=== PATIENT | female | born 1980 | race Caucasian/White ===

== ENCOUNTER → 2018-04-04 | Outpatient (CLI) | payer OTHER | LOC: EDSTATUS 09:55 → BMCIMAGING 11:40 | PROVIDERS: ATTEND Emergency Medicine | DX: J40 Bronchitis, not specified as acute or chronic (principal) ==

== ENCOUNTER 2018-04-13 20:26 | Emergency (ER) | payer OTHER ==
[2018-04-13] MEDS ORDERED: IPRATROPIUM/ALBUTEROL 3 ML DEYVIAL IH ONE (20:47)
--- NOTE | 2018-04-13 21:16 | EDPHY ---
H & P Stated Complaint: cough, SOB Time Seen by Provider: 04/13/18 20:45 HPI/ROS: CHIEF COMPLAINT: Shortness of breath HISTORY OF PRESENT ILLNESS: The patient is a 38-year-old female who comes to the emergency department complaining of cough and shortness of breath sensation as well as upper chest pressure for the last week and half. She initially presented to an urgent care and was treated with albuterol, cough syrup and azithromycin. She took the course of antibiotics but did not feel any better. [facility] and they had her continue the albuterol and added prednisone tablets and QVAR inhaler. She states that she has been using these and still not feeling better. She has had a low-grade fever up to 99 degrees. She has been traveling extensively this summer to [place]. She does not take control pills. She does not smoke. She denies any history of asthma or COPD of cardiac disease. She states that she had an albuterol inhaler earlier today and felt much better afterwards. Severity: Moderate Modifying factors: None REVIEW OF SYSTEMS: Constitutional: See HPI EENTM: denies: blurred vision, double vision, nose congestion Respiratory: See HPI Cardiac: denies: chest pain, irregular heart rate, lightheadedness, palpitations Gastrointestinal/Abdominal: denies: abdominal pain, diarrhea, nausea, vomiting, blood streaked stools Genitourinary: denies: dysuria, frequency, hematuria, pain Musculoskeletal: denies: joint pain, muscle pain Skin: denies: lesions, rash, jaundice, bruising Neurological: denies: headache, numbness, paresthesia, tingling, dizziness, weakness Hematologic/Lymphatic: denies: blood clots, easy bleeding, easy bruising Immunologic/allergic: denies: HIV/AIDS, transplant 10 systems reviewed and negative except as noted EXAM: GENERAL: Well-appearing, well-nourished and in no acute distress. HEAD: Atraumatic, normocephalic. EYES: Pupils equal round and reactive to light, extraocular movements intact, sclera anicteric, conjunctiva are normal. ENT: TMs normal, nares patent, oropharynx clear without exudates. Moist mucous membranes. NECK: Normal range of motion, supple without lymphadenopathy or JVD. LUNGS: Cough, Breath sounds clear to auscultation bilaterally and equal. No wheezes rales or rhonchi. HEART: Regular rate and rhythm without murmurs, rubs or gallops. ABDOMEN: Soft, nontender, normoactive bowel sounds. No guarding, no rebound. No masses appreciated. BACK: No CVA tenderness, no spinal tenderness, step-offs or deformities EXTREMITIES: Normal range of motion, no pitting or edema. No clubbing or cyanosis. NEUROLOGICAL: Cranial nerves II through XII grossly intact. Normal speech, normal gait. 5/5 strength, normal movement in all extremities, normal sensation , normal reflexes PSYCH: Normal mood, normal affect. SKIN: Warm, dry, normal turgor, no visible rashes or lesions. Source: Patient Exam Limitations: No limitations - Personal History LMP (Females 10-55): 8-14 Days Ago Current Tetanus Diphtheria and Acellular Pertussis (TDAP): Yes Tetanus Vaccine Date: 2010 - Medical/Surgical History Hx Asthma: No Hx Chronic Respiratory Disease: No Hx Diabetes: No Hx Cardiac Disease: No Hx Renal Disease: No Hx Cirrhosis: No Hx Alcoholism: No Hx HIV/AIDS: No Hx Splenectomy or Spleen Trauma: No Other PMH: FIBROMYALGIA, TMJ, D&J, TONSIL - Family History Significant Family History: No pertinent family hx - Social History Smoking Status: Never smoked Alcohol Use: Sober Drug Use: None Constitutional: Initial Vital Signs Temperature (C) 36.9 C 04/13/18 20:30 Heart Rate 80 04/13/18 20:30 Respiratory Rate 20 04/13/18 20:30 Blood Pressure 137/81 H 04/13/18 20:30 O2 Sat (%) 98 04/13/18 20:30 O2 Delivery Mode Room Air Allergies/Adverse Reactions: No Known Allergies Allergy (Unverified 04/13/18 20:28) Home Medications: Medication Instructions Recorded Albuterol Sulfate [ALBUTEROL 1.25 mg IH Q4-6PRN PRN #14 04/13/18 SULFATE 1.25 MG/3 ML] Zyrtec 04/13/18 Medical Decision Making - Diagnostics EKG Interpretation: An EKG obtained and was read and documented in trace view. Please see trace view for full reading and report. Sinus rhythm, no acute ischemic changes Imaging: Discussed imaging studies w/ strategic account director Radiologist ED Course/Re-evaluation: We discussed the x-ray and lab results which are reassuring. The patient is requesting albuterol to use at home and in nebulized form. She has a nebulizer for children. She states that this works better than the inhaler. We discussed indications for returning. I suspect that this is a viral illness and will simply take a few days longer to resolve. Differential Diagnosis: Partial list of the Differential diagnosis considered include but were not limited to; viral syndrome, bronchitis, pneumonia, asthma and although unlikely based on the history and physical exam, I also considered PE, acute coronary disease, pneumothorax. I discussed these differential diagnoses and the plan with the patient as well as the usual and expected course. The patient understands that the diagnosis is provisional and that in medicine we are not always correct and that further workup is often warranted. Usual and customary warnings were given. All of the patient's questions were answered. The patient was instructed to return to the emergency department should the symptoms at all worsen or return, otherwise to followup with the physician as we discussed. - Data Points Laboratory Results: Laboratory Results 04/13/18 21:21 04/13/18 21:21 Medications Given: Discontinued Medications Albuterol/Ipratropium (Duoneb) 3 ml IH EDNOW ONE Stop: 04/13/18 20:48 Last Admin: 04/13/18 20:50 Dose: 3 ml Point of Care Test Results: Chemistry 04/13/18 21:26 POC Troponin I 0.01 ng/mL ng/mL (0.00-0.08) Departure - Departure Disposition: Home, Routine, Self-Care Clinical Impression: Acute bronchitis Qualifiers: Bronchitis organism: unspecified organism Qualified Code(s): J20.9 - Acute bronchitis, unspecified Condition: Fair Instructions: Acute Bronchitis (ED) Referrals: Kiersten Hook MD [Primary Care Provider] - As per Instructions Prescriptions: Albuterol Sulfate [ALBUTEROL SULFATE 1.25 MG/3 ML] 1.25 mg IH Q4-6PRN PRN #14 PRN Reason: Wheezing
[2018-04-13 21:35] LABS: PLATELET COUNT 243 10^3/uL (150-400)
--- NOTE | 2018-04-13 21:40 | CPEKG ---
Test Reason : OPEN Blood Pressure : / mmHG Vent. Rate : 085 BPM Atrial Rate : 085 BPM P-R Int : 139 ms QRS Dur : 100 ms QT Int : 368 ms P-R-T Axes : 049 038 032 degrees QTc Int : 438 ms Sinus rhythm Confirmed by Oscar Perez ([id number]) on 04/13/2018 9:40:25 PM Referred By: Confirmed By:Oscar Perez
[2018-04-13 21:43] LABS: INR 1.01 (0.83-1.16); PROTIME(PATIENT) 13.5 SEC (12.0-15.0)
[2018-04-13 22:26] VITALS: BP 128/76
== END 2018-04-13 22:26 | disposition home or self-care (01) ==
DX: J20.9 Acute bronchitis, unspecified (principal)
CPT/HCPCS: 84484-PO

== ENCOUNTER 2018-04-28 21:28 | Emergency (ER) | payer OTHER ==
[2018-04-28 22:21] LABS: PLATELET COUNT 254 10^3/uL (150-400)
[2018-04-28] MEDS ORDERED: IOPAMIDOL (ISOVUE 370) 100 ML BTL IV ONE (22:33)
--- NOTE | 2018-04-28 22:38 | EDPHY ---
H & P Stated Complaint: cough tightness in chest seen at [facility] for pulmonary Time Seen by Provider: 04/28/18 21:53 HPI/ROS: Chief Complaint: Chest tightness HPI: 38-year-old woman presenting with chest tightness. Patient states she has been having chest tightness for the last month. She has seen multiple providers for this including emergency department, Urgent Care, ENT, and design printing machine setter at [facility]. She is currently prescribed Symbicort, dexamethasone, albuterol nebulizer and rescue inhaler. She is scheduled for additional pulmonary function testing and blood testing next week at [facility]. She is also scheduled for a CT scan in 2 weeks. She does have a history of traveling throughout [place] this summer. She has some chills but no fever. Cough is dry nonproductive. No shortness of breath. She is presenting tonight because she was told that if she has to use a rescue inhaler more than every 2 hr to present to the emergency department. She last used an hour and half ago and began experiencing symptoms once again. No leg pain or swelling. ROS: 10 systems were reviewed and were negative except those elements noted in the HPI. PMH: Denies Social History: No smoking, no alcohol, no recreational drug use Family History: non-contributory Physical Exam: Gen: Awake, Alert, No Distress HEENT: Nose: no rhinorrhea Eyes: PERRLA, EOMI Mouth: Moist mucosa Neck: Supple, no JVD Chest: nontender, lungs clear to auscultation Heart: S1, S2 normal, no murmur Abd: Soft, non-tender, no guarding Back: no CVA tenderness, no midline tenderness Ext: no edema, non-tender Skin: no rash Neuro: CN II-XII intact, Sensation grossly intact, Strength 5/5 in bilateral upper and lower extremities - Personal History LMP (Females 10-55): Unknown Current Tetanus/Diphtheria Vaccine: Yes Current Tetanus Diphtheria and Acellular Pertussis (TDAP): Yes Tetanus Vaccine Date: 2010 - Medical/Surgical History Hx Asthma: No Hx Chronic Respiratory Disease: No Hx Diabetes: No Hx Cardiac Disease: No Hx Renal Disease: No Hx Cirrhosis: No Hx Alcoholism: No Hx HIV/AIDS: No Hx Splenectomy or Spleen Trauma: No Other PMH: FIBROMYALGIA, TMJ, D&J, TONSIL - Social History Smoking Status: Never smoked Constitutional: Initial Vital Signs Temperature (C) 36.7 C 04/28/18 22:00 Heart Rate 90 04/28/18 22:00 Respiratory Rate 18 04/28/18 22:00 Blood Pressure 143/97 H 04/28/18 22:00 O2 Sat (%) 95 04/28/18 22:00 O2 Delivery Mode Room Air Allergies/Adverse Reactions: No Known Allergies Allergy (Unverified 04/13/18 20:28) Home Medications: Medication Instructions Recorded Albuterol Sulfate [ALBUTEROL 1.25 mg IH Q4-6PRN PRN #14 04/13/18 SULFATE 1.25 MG/3 ML] DEXAMETHASONE 04/28/18 Hydroxyzine HCl 04/28/18 Medical Decision Making - Diagnostics Imaging Results: Imaging Impressions Chest/Thorax CTA 04/28/18 22:14 Impression: Negative CT examination of the chest for acute pulmonary thromboembolic disease. Results called to Dr. Tristen Shields at 11:00 PM at the time of the interpretation. Imaging: Discussed imaging studies w/ call center support representative Radiologist ED Course/Re-evaluation: CT scan of the chest is negative. Laboratory evaluations are unremarkable. Oxygen saturations are in the high 90s. She is not tachypneic. No other acute findings at this time. She says she is feeling improved with no treatment here. Will discharge with follow-up with design printing machine setter next Thursday as scheduled. - Data Points Laboratory Results: Laboratory Results 04/28/18 22:00 04/28/18 22:00 04/29/18 04/28/18 04/28/18 00:10 22:00 22:00 WBC RBC Hgb Hct MCV MCH MCHC RDW Plt Count MPV Neut % (Auto) Lymph % (Auto) [place] % (Auto) Eos % (Auto) Baso % (Auto) Nucleat RBC Rel Count Absolute Neuts (auto) Absolute Lymphs (auto) Absolute Monos (auto) Absolute Eos (auto) Absolute Basos (auto) Absolute Nucleated RBC Immature Gran % Immature Gran # Sodium 137 mEq/L mEq/L (135-145) Potassium 3.7 mEq/L mEq/L (3.3-5.0) Chloride 104 mEq/L mEq/L (97-110) Carbon Dioxide 23 mEq/l mEq/l (22-31) Anion Gap 10 mEq/L mEq/L (8-16) BUN 9 mg/dL mg/dL (7-23) Creatinine 0.6 mg/dL mg/dL (0.6-1.0) Estimated GFR > 60 Glucose 134 mg/dL H mg/dL (70-100) Calcium 10.0 mg/dL mg/dL (8.5-10.4) Beta HCG, Qual NEGATIVE Urine Legionella Ag Pending 04/28/18 22:00 WBC 11.39 10^3/uL H 10^3/uL (3.80-9.50) RBC 4.47 10^6/uL 10^6/uL (4.18-5.33) Hgb 13.8 g/dL g/dL (12.6-16.3) Hct 39.6 % % (38.0-47.0) MCV 88.6 fL fL (81.5-99.8) MCH 30.9 pg pg (27.9-34.1) MCHC 34.8 g/dL g/dL (32.4-36.7) RDW 12.8 % % (11.5-15.2) Plt Count 254 10^3/uL 10^3/uL (150-400) MPV 11.8 fL H fL (8.7-11.7) Neut % (Auto) 85.7 % H % (39.3-74.2) Lymph % (Auto) 9.9 % L % (15.0-45.0) [place] % (Auto) 3.7 % L % (4.5-13.0) Eos % (Auto) 0.0 % L % (0.6-7.6) Baso % (Auto) 0.3 % % (0.3-1.7) Nucleat RBC Rel Count 0.0 % % (0.0-0.2) Absolute Neuts (auto) 9.77 10^3/uL H 10^3/uL (1.70-6.50) Absolute Lymphs (auto) 1.13 10^3/uL 10^3/uL (1.00-3.00) Absolute Monos (auto) 0.42 10^3/uL 10^3/uL (0.30-0.80) Absolute Eos (auto) 0.00 10^3/uL L 10^3/uL (0.03-0.40) Absolute Basos (auto) 0.03 10^3/uL 10^3/uL (0.02-0.10) Absolute Nucleated RBC 0.00 10^3/uL 10^3/uL (0-0.01) Immature Gran % 0.4 % % (0.0-1.1) Immature Gran # 0.04 10^3/uL 10^3/uL (0.00-0.10) Sodium Potassium Chloride Carbon Dioxide Anion Gap BUN Creatinine Estimated GFR Glucose Calcium Beta HCG, Qual Urine Legionella Ag Departure - Departure Disposition: Home, Routine, Self-Care Clinical Impression: Dyspnea Condition: Good Instructions: Dyspnea (ED) Additional Instructions: Follow up with design printing machine setter as scheduled. Return to the emergency department with worsening shortness of breath, cough, fevers, chills, chest pain, or any other concerns. Referrals: Kiersten Hook MD [Primary Care Provider] - As per Instructions
[2018-04-29 00:08] VITALS: BP 108/60
--- NOTE | 2018-04-29 06:06 | CPEKG ---
Test Reason : OPEN Blood Pressure : / mmHG Vent. Rate : 070 BPM Atrial Rate : 070 BPM P-R Int : 139 ms QRS Dur : 095 ms QT Int : 386 ms P-R-T Axes : 026 015 036 degrees QTc Int : 417 ms Sinus rhythm Confirmed by Tristen Shields ([id number]) on 04/29/2018 6:05:51 AM Referred By: Confirmed By:Tristen Shields
== END 2018-04-29 00:30 | disposition home or self-care (01) ==
DX: R06.00 Dyspnea, unspecified (principal); R07.89 Other chest pain
CPT/HCPCS: 87449-90; Q9967

== ENCOUNTER 2018-07-16 20:32 | Emergency (ER) | payer OTHER ==
--- NOTE | 2018-07-16 20:59 | EDPHY ---
H & P Stated Complaint: lightheaded, nausea, per PCP enlarged spleen Time Seen by Provider: 07/16/18 20:58 HPI/ROS: CHIEF COMPLAINT: Left upper quadrant pain, nausea, history of mononucleosis HISTORY OF PRESENT ILLNESS: The patient presents to the ED concerned about the possibility of spleen rupture. The patient has a history of mononucleosis. The patient saw her primary care provider today as she has had symptoms of sharp intermittent left upper quadrant pain, presyncope and nausea. She was referred to the emergency department for evaluation for possible splenic injury. The patient denies significant past medical history aside from fibromyalgia. She is not anticoagulated. She denies any chest pain or shortness of breath. REVIEW OF SYSTEMS: A comprehensive 10 point review of systems is otherwise negative aside from elements mentioned in the history of present illness. Source: Patient - Personal History LMP (Females 10-55): 8-14 Days Ago Current Tetanus/Diphtheria Vaccine: Yes Tetanus Vaccine Date: 2010 - Medical/Surgical History Hx Asthma: No Hx Chronic Respiratory Disease: No Hx Diabetes: No Hx Cardiac Disease: No Hx Renal Disease: No Hx Cirrhosis: No Hx Alcoholism: No Hx HIV/AIDS: No Hx Splenectomy or Spleen Trauma: No Other PMH: FIBROMYALGIA, TMJ, D&J, TONSIL, MONO 03/20 - Social History Smoking Status: Never smoked - Physical Exam Exam: General Appearance: Alert, no distress Eyes: Pupils equal and round no pallor or injection ENT, Mouth: Mucous membranes moist Respiratory: There are no retractions, lungs are clear to auscultation Cardiovascular: Regular rate and rhythm Gastrointestinal: Tenderness to palpation left upper quadrant, questionable splenomegaly, no peritoneal signs Neurological: 5/5 strength noted all 4 extremities Skin: Warm and dry, no rashes Musculoskeletal: Neck is supple nontender Extremities: symmetrical, full range of motion Psychiatric: Patient is oriented X 3, there is no agitation Constitutional: Initial Vital Signs Temperature (C) 36.8 C 07/16/18 20:36 Heart Rate 80 07/16/18 20:36 Respiratory Rate 16 07/16/18 20:36 Blood Pressure 129/86 H 07/16/18 20:36 O2 Sat (%) 98 07/16/18 20:36 O2 Delivery Mode Room Air Allergies/Adverse Reactions: No Known Allergies Allergy (Unverified 04/13/18 20:28) Home Medications: Medication Instructions Recorded Hydroxyzine HCl 04/28/18 Fluorometholone Acetate 07/16/18 Xiidra 07/16/18 ZYRTEC 07/16/18 Medical Decision Making - Diagnostics Imaging Results: CT abdomen pelvis with IV contrast: No splenomegaly, no spleen rupture, no intra-abdominal fluid. Constipation is noted. ED Course/Re-evaluation: The patient presents to the ED with presyncope and left upper quadrant pain in the setting of reported mononucleosis. Given concerns about possible spleen rupture a CT scan of the abdomen pelvis with IV contrast was ordered. CT scan of the abdomen pelvis demonstrates no evidence of splenomegaly or spleen injury. The images reviewed by myself and discussed with Dr. Torres. Differential Diagnosis: Differential diagnosis considered includes myofascial strain, splenic rupture, splenic hematoma - Data Points Laboratory Results: Laboratory Results 07/16/18 20:53 07/16/18 20:53 07/16/18 07/16/18 07/16/18 20:53 20:53 20:53 WBC 9.25 10^3/uL 10^3/uL (3.80-9.50) RBC 4.56 10^6/uL 10^6/uL (4.18-5.33) Hgb 14.3 g/dL g/dL (12.6-16.3) Hct 41.4 % % (38.0-47.0) MCV 90.8 fL fL (81.5-99.8) MCH 31.4 pg pg (27.9-34.1) MCHC 34.5 g/dL g/dL (32.4-36.7) RDW 12.2 % % (11.5-15.2) Plt Count 242 10^3/uL 10^3/uL (150-400) MPV 11.6 fL fL (8.7-11.7) Neut % (Auto) 54.0 % % (39.3-74.2) Lymph % (Auto) 29.8 % % (15.0-45.0) [place] % (Auto) 7.7 % % (4.5-13.0) Eos % (Auto) 6.7 % % (0.6-7.6) Baso % (Auto) 1.7 % % (0.3-1.7) Nucleat RBC Rel Count 0.0 % % (0.0-0.2) Absolute Neuts (auto) 4.99 10^3/uL 10^3/uL (1.70-6.50) Absolute Lymphs (auto) 2.76 10^3/uL 10^3/uL (1.00-3.00) Absolute Monos (auto) 0.71 10^3/uL 10^3/uL (0.30-0.80) Absolute Eos (auto) 0.62 10^3/uL H 10^3/uL (0.03-0.40) Absolute Basos (auto) 0.16 10^3/uL H 10^3/uL (0.02-0.10) Absolute Nucleated RBC 0.00 10^3/uL 10^3/uL (0-0.01) Immature Gran % 0.1 % % (0.0-1.1) Immature Gran # 0.01 10^3/uL 10^3/uL (0.00-0.10) Sodium 139 mEq/L mEq/L (135-145) Potassium 3.6 mEq/L mEq/L (3.5-5.2) Chloride 103 mEq/L mEq/L (97-110) Carbon Dioxide 25 mEq/l mEq/l (22-31) Anion Gap 11 mEq/L mEq/L (6-14) BUN 9 mg/dL mg/dL (7-23) Creatinine 0.8 mg/dL mg/dL (0.6-1.0) Estimated GFR > 60 Glucose 102 mg/dL H mg/dL (70-100) Calcium 9.6 mg/dL mg/dL (8.5-10.4) Total Bilirubin 0.4 mg/dL mg/dL (0.1-1.4) Conjugated Bilirubin 0.1 mg/dL mg/dL (0.0-0.5) Unconjugated Bilirubin 0.3 mg/dL mg/dL (0.0-1.1) AST 26 IU/L IU/L (14-46) ALT 24 IU/L IU/L (9-52) Alkaline Phosphatase 72 IU/L IU/L (38-126) Total Protein 7.6 g/dL g/dL (6.3-8.2) Albumin 4.8 g/dL g/dL (3.5-5.0) Lipase 76 IU/L IU/L (23-300) Beta HCG, Qual NEGATIVE Departure - Departure Disposition: Home, Routine, Self-Care Clinical Impression: Abdominal pain Condition: Good Instructions: Abdominal Pain (ED) Additional Instructions: 1. You do have some evidence of constipation on CT scan. 2. You have no evidence of an enlarged spleen or spleen rupture. 3. Please return to the emergency department for markedly worsening pain or other concerns. 4. Follow up with your primary care provider as scheduled. Referrals: Kiersten Hook MD [Primary Care Provider] - As per Instructions
[2018-07-16 21:07] LABS: PLATELET COUNT 242 10^3/uL (150-400)
[2018-07-16] MEDS ORDERED: IOPAMIDOL (ISOVUE 370) 100 ML BTL IV ONE (21:44)
[2018-07-16 22:40] VITALS: BP 120/62
== END 2018-07-16 22:40 | disposition home or self-care (01) ==
DX: R10.12 Left upper quadrant pain (principal); R11.0 Nausea; M79.7 Fibromyalgia
CPT/HCPCS: Q9967